=== PATIENT | male | born 1960 | race Caucasian/White ===

== ENCOUNTER 2018-02-01 21:20 | Emergency (ER) | payer OTHER, MEDICARE ==
[2018-02-01] MEDS ORDERED: NORMAL SALINE 500 ML IV ONE (21:40)
[2018-02-01 22:06] LABS: ABSOLUTE BASOPHILS # (AUTO) 0.1 10^3/uL (0.0-0.2); ABSOLUTE EOSINOPHILS # (AUTO) 0.3 10^3/uL (0.0-0.6); ABSOLUTE LYMPHOCYTES (AUTO) 2.8 10^3/uL (0.5-4.7); ABSOLUTE MONOCYTES (AUTO) 0.8 10^3/uL (0.1-1.4); ABSOLUTE NEUT (AUTO) 5.3 10^3/uL (1.7-8.2); BASOPHILS % (AUTO) 0.8 % (0-2); EOSINOPHILS % (AUTO) 3.4 % (0-6); HEMATOCRIT 45.3 % (37.9-51.0); HEMOGLOBIN 15.9 g/dL (13.5-17.0); LYMPHOCYTES % (AUTO) 29.8 % (13-45); MEAN CORPUSCULAR HEMOGLOBIN 33.1 pg (27.0-33.4); MEAN CORPUSCULAR HGB CONC 35.1 g/dL (32.0-36.0); MEAN CORPUSCULAR VOLUME 94 fl (80-97); MONOCYTES % (AUTO) 8.9 % (3-13); PLATELET COUNT 241 10^3/uL (150-450); RED CELL DISTRIBUTION WIDTH 13.5 % (11.5-14.0); SEGMENTED NEUTROPHILS % (AUTO) 57.1 % (42-78); TOTAL CELLS COUNTED % (AUTO) 100 %; WHITE BLOOD COUNT 9.2 10^3/uL (4.0-10.5)
[2018-02-01] MEDS ORDERED: KETOROLAC TROMETHAMINE INJ/PF 30 MG/1 ML SDV IV ONE (22:06)
[2018-02-01] MEDS ORDERED: MORPHINE SULFATE 10 MG/ML INJ IV PRN (22:06)
[2018-02-01 22:13] LABS: APPEARANCE,URINE SLIGHTLY-CLOUDY; BILIRUBIN,URINE NEGATIVE (NEGATIVE); COLOR,URINE YELLOW; GLUCOSE, URINE NEGATIVE (NEGATIVE); KETONES,URINE TRACE mg/dL (NEGATIVE); LEUKOCYTE ESTERASE,URINE NEGATIVE (NEGATIVE); NITRITE,URINE NEGATIVE (NEGATIVE); PROTEIN,URINE NEGATIVE (NEGATIVE); URINE SPECIFIC GRAVITY 1.027
[2018-02-01 22:24] LABS: ALANINE AMINOTRANSFERASE 20 U/L (21-72); ALBUMIN 4.1 g/dL (3.5-5.0); ALKALINE PHOSPHATASE 72 U/L (38-126); ANION GAP 12 (5-19); ASPARTATE AMINO TRANSFERASE 22 U/L (17-59); BILIRUBIN,DIRECT 0.2 mg/dL (0.0-0.4); BILIRUBIN,TOTAL 0.4 mg/dL (0.2-1.3); BLOOD UREA NITROGEN 18 mg/dL (7-20); CALCIUM 9.6 mg/dL (8.4-10.2); CARBON DIOXIDE 27 mmol/L (22-30); CHLORIDE 103 mmol/L (98-107); GLUCOSE 89 mg/dL (75-110); LIPASE 100.6 U/L (23-300); POTASSIUM 4.7 mmol/L (3.6-5.0); SODIUM 141.9 mmol/L (137-145); TOTAL PROTEIN 6.8 g/dL (6.3-8.2)
[2018-02-01] MEDS ORDERED: CEPHALEXIN 500 MG CAPSULE PO ONE (23:35)
[2018-02-01] MEDS ORDERED: METRONIDAZOLE 500 MG TABLET PO ONE (23:35)
[2018-02-01] MEDS ORDERED: DICYCLOMINE HCL INJ 20 MG/2 ML AMPULE IM ONE (23:35)
--- NOTE | 2018-02-01 23:38 | ER Document Report ---
ED General - General Chief Complaint: Abdominal Pain Stated Complaint: ABDOMINAL PAIN Time Seen by Provider: 02/01/18 22:06 Notes: Patient is a 57-year-old male with a past medical history of diverticulitis in October, no known chronic medical problems who presents with 4-5 hours of left lower abdominal pain. Patient states this pain started relatively abruptly and has been worsening since that time. He describes it as a throbbing, aching, stabbing pain to the lower abdomen. Nothing improves or worsens that pain. He states this feels exactly the same as when he had diverticulitis in the past. He denies any associated fever or constitutional symptoms. His previous course of diverticulitis was uncomplicated without requiring hospitalization or surgical intervention. He has not contacted his primary care doctor regarding today's concerns. - Related Data Allergies/Adverse Reactions: No Known Allergies Allergy (Unverified 02/01/18 21:24) Past Medical History - General Information source: Patient - Social History Smoking Status: Current Every Day Smoker Chew tobacco use (# tins/day): No Frequency of alcohol use: None Drug Abuse: None Lives with: Spouse/Significant other Family History: Reviewed & Not Pertinent Patient has suicidal ideation: No Patient has homicidal ideation: No Renal/ Medical History: Denies: Hx Peritoneal Dialysis Past Surgical History: Reports: Hx Cardiac Surgery - stent, Hx Cholecystectomy Review of Systems - Review of Systems Notes: Constitutional: Negative for fever. HENT: Negative for sore throat. Eyes: Negative for visual changes. Cardiovascular: Negative for chest pain. Respiratory: Negative for shortness of breath. Gastrointestinal: Positive for abdominal pain Genitourinary: Negative for dysuria. Musculoskeletal: Negative for back pain. Skin: Negative for rash. Neurological: Negative for headaches, weakness or numbness. 10 point ROS negative except as marked above and in HPI. Physical Exam - Vital signs Vitals: Temp Pulse Resp BP Pulse Ox 97.6 F 72 16 146/76 H 97 02/01/18 21:26 02/01/18 21:26 02/01/18 21:26 02/01/18 21:26 02/01/18 21:26 Interpretation: Normal Notes: PHYSICAL EXAMINATION: GENERAL: Well-appearing, well-nourished and in no acute distress. HEAD: Atraumatic, normocephalic. EYES: Pupils equal round and reactive to light, extraocular movements intact, sclera anicteric, conjunctiva are normal. ENT: nares patent, oropharynx clear without exudates. Moist mucous membranes. NECK: Normal range of motion, supple without lymphadenopathy LUNGS: Breath sounds clear to auscultation bilaterally and equal. No wheezes rales or rhonchi. HEART: Regular rate and rhythm without murmurs ABDOMEN: Soft, focal tenderness to the left lower quadrant without any other areas of localized pain., normoactive bowel sounds. No guarding, no rebound. No masses appreciated. EXTREMITIES: Normal range of motion, no pitting or edema. No cyanosis. NEUROLOGICAL: No focal neurological deficits. Moves all extremities spontaneously and on command. PSYCH: Normal mood, normal affect. SKIN: Warm, Dry, normal turgor, no rashes or lesions noted. Course - Re-evaluation Re-evalutation: 02/01/18 23:37 Patient presents with relatively acute onset of left lower quadrant abdominal pain which he states feels exactly the same as when he had diverticulitis in the past. He has local tenderness to the left lower quadrant on palpation but there are areas of abdominal tenderness. He is well in appearance, vitals within normal limits. His labs are unremarkable without evidence of leukocytosis. He has had not had fever or constitutional symptoms. No vomiting. We have discussed proceeding with CT imaging versus empiric treatment and close outpatient follow-up. The patient is would like to avoid CT at this time and have clearly verbalized understanding of signs that would indicate progression or worsen of his underlying condition. The patient' s clinical exam at this time is not suggestive of an acute bowel perforation, intra-abdominal abscess, acute appendicitis, bowel obstruction, or biliary pathology. At this time will discharge with return precautions and follow-up recommendations. Verbal discharge instructions given a the bedside and opportunity for questions given. Medication warnings reviewed. Patient is in agreement with this plan and has verbalized understanding of return precautions and the need for primary care follow-up in the next 24-72 hours. - Vital Signs Vital signs: Temp Pulse Resp BP Pulse Ox 97.8 F 68 18 149/79 H 97 02/01/18 23:50 02/01/18 23:50 02/01/18 23:50 02/01/18 23:50 02/01/18 23:50 - Laboratory Result Diagrams: 02/01/18 21:53 02/01/18 21:53 Laboratory results interpreted by me: 02/01/18 02/01/18 21:53 21:53 ALT 20 L Urine Ketones TRACE H Urine Urobilinogen 2.0 H Discharge - Discharge Clinical Impression: Diverticulitis, Abdominal pain, acute, left lower quadrant Condition: Good Disposition: HOME, SELF-CARE Additional Instructions: You were seen today for focal pain in your left lower quadrant. Your labs and exam suggest a diagnosis of diverticulitis. This is an inflammation of a part of your colon. You are being started on antibiotics to treat this infection and inflammation. Please take all of them as directed and complete them even if your symptoms resolve. Please follow-up with your primary care physician within the next 48 hours. Return to the emergency department immediately if you develop worsening pain, persistent vomiting, began having bloody stools, develop a fever of greater than 101F, or have any other symptoms that are concerning to you. Prescriptions: Cephalexin Monohydrate [Keflex 500 mg Capsule] 500 mg PO Q6H 7 Days capsule Metronidazole [Flagyl 500 mg Tablet] 500 mg PO Q6H #28 tablet
[2018-02-02 00:05] VITALS: BP 149/79
== END 2018-02-01 23:57 | disposition home or self-care (01) ==
LOC: ER 21:20
DX: K57.92 Diverticulitis of intestine, part unspecified, without perforation or abscess without bleeding (principal); R10.32 Left lower quadrant pain; F17.200 Nicotine dependence, unspecified, uncomplicated; Z90.49 Acquired absence of other specified parts of digestive tract
CPT/HCPCS: 99284; 96372; 96361; 96374; 36415; 83690; 85025; 80053; 81001; J0500; J1885; J7040